=== PATIENT | male | born 1975 | race Caucasian/White ===

== ENCOUNTER 2022-01-23 23:30 | Emergency (ER) | payer OTHER ==
[2022-01-24 00:07] VITALS: PULSE 60; RESP 14; TEMP 97.8
--- NOTE | 2022-01-24 00:25 | XR ---
EXAMINATION TYPE: XR chest 2V DATE OF EXAM: 01/24/2022 COMPARISON: NONE HISTORY: Chest pain TECHNIQUE: 2 views FINDINGS: Heart is normal. Lungs are clear. Consolidation. There are no hilar masses. Costophrenic an gles are clear. IMPRESSION: No active cardiopulmonary disease. Normal heart.
[2022-01-24 00:52] LABS: Basophils % (A) 0 %; Eosinophils # (A) 0.2 k/uL (0-0.7); Eosinophils % (A) 2 %; HCT 43.8 % (39.0-53.0); HGB 14.4 gm/dL (13.0-17.5); Lymphocytes # (A) 2.3 k/uL (1.0-4.8); Lymphocytes % (A) 28 %; MCH 30.8 pg (25.0-35.0); MCV 93.5 fL (80.0-100.0); Mean Platelet Volume 7.3; Monocytes # (A) 0.7 k/uL (0-1.0); Monocytes % (A) 9 %; Neutrophils # (A) 4.9 k/uL (1.3-7.7); Neutrophils % (A) 59 %; Platelet Count 268 k/uL (150-450); RBC 4.68 m/uL (4.30-5.90); RDW 13.2 % (11.5-15.5); WBC 8.3 k/uL (3.8-10.6)
[2022-01-24] MEDS ORDERED: SODIUM CHLORIDE 0.9% 1,000 ML IV STA ×2 (00:52→01:56)
[2022-01-24 00:55] LABS: Albumin 4.5 g/dL (3.5-5.0); Magnesium 1.9 mg/dL (1.6-2.3); Total Bilirubin 0.3 mg/dL (0.2-1.3); Total Protein 6.9 g/dL (6.3-8.2)
[2022-01-24 00:56] LABS: INR 1.1 (<1.2); Partial Thromboplastin Time 22.3 sec (22.0-30.0); Prothrombin Time 11.4 sec (9.0-12.0)
--- NOTE | 2022-01-24 02:01 | ED ---
General Adult HPI - General Chief complaint: Chest Pain Stated complaint: Syncope Time Seen by Provider: 01/24/22 00:27 Source: patient, RN notes reviewed Mode of arrival: wheelchair Limitations: no limitations - History of Present Illness Initial comments: 46-year-old male presents to the emergency department for evaluation status post syncopal episode this evening. 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 States he was briefly unconscious and recalls several people standing over him as he came around. States he has a history of hypertension which is well-controlled. Has not had a previous episode similar in nature. Does endorse some alcohol intake this evening. Denies fever, chills, headache, chest pain, shortness of breath, abdominal pain, nausea, vomiting, diarrhea, dysuria, or lower extremity edema. - Related Data Home Medications Medication Instructions Recorded Confirmed Aspirin 325 mg PO DAILY PRN 05/06/16 05/06/16 Multivit-Mins/Iron/Folic/Lycop 1 tab PO DAILY 05/06/16 05/06/16 [Centrum Men's Tablet] Highlands-3 Fatty Acids [Highlands-3] 1,000 mg PO DAILY 05/06/16 05/06/16 Previous Rx's Medication Instructions Recorded Ibuprofen [Motrin] 600 mg PO Q6HR PRN #40 day 05/06/16 Allergies Allergy/AdvReac Type Severity Reaction Status Date / Time No Known Allergies Allergy Verified 05/06/16 13:56 Review of Systems ROS Statement: Those systems with pertinent positive or pertinent negative responses have been documented in the HPI. ROS Other: All systems not noted in ROS Statement are negative. Past Medical History Past Medical History: Unable to Obtain, Hypertension History of Any Multi-Drug Resistant Organisms: None Reported Additional Past Surgical History / Comment(s): nose Past Psychological History: No Psychological Hx Reported Past Alcohol Use History: Occasional Past Drug Use History: None Reported General Exam Limitations: no limitations (Well-developed, well-nourished male in no acute distress. Initial temperature 97.8, pulse 60, respirations 14, blood pressure 120/70, pulse ox 97% on room air.) General appearance: alert, in no apparent distress Head exam: Present: atraumatic, normocephalic, normal inspection Eye exam: Present: normal appearance, PERRL, EOMI. Absent: scleral icterus, conjunctival injection, periorbital swelling ENT exam: Present: normal exam, normal oropharynx, mucous membranes moist, TM's normal bilaterally Neck exam: Present: normal inspection, full ROM. Absent: tenderness, meningismus, lymphadenopathy Respiratory exam: Present: normal lung sounds bilaterally. Absent: respiratory distress, wheezes, rales, rhonchi, stridor, chest wall tenderness Cardiovascular Exam: Present: regular rate, normal rhythm, normal heart sounds. Absent: systolic murmur, diastolic murmur, rubs, gallop, clicks GI/Abdominal exam: Present: soft, normal bowel sounds. Absent: distended, tenderness, guarding, rebound, rigid Neurological exam: Present: alert, oriented X3, CN II-XII intact, normal gait Expanded Patient oriented to: Present: person, place, time Speech: Present: fluid speech Cranial nerves: EOM's Intact: Normal, Nystagmus: Normal Cerebellar function: Finger to Nose: Normal, Romberg: Normal Motor strength exam: RUE: 5, LUE: 5, RLE: 5, LLE: 5 Eye Response: (4) open spontaneously Motor Response: (6) obeys commands Verbal Response: (5) oriented Mercedes Total: 15 Psychiatric exam: Present: normal affect, normal mood Skin exam: Present: warm, dry, intact, normal color. Absent: rash Course Vital Signs 01/24/22 01/24/22 00:05 02:19 Temperature 97.8 F Pulse Rate 60 Respiratory 14 Rate Blood Pressure 112/70 Blood Pressure 128/83 [Left Arm Supine] Blood Pressure 133/83 [Sitting] Blood Pressure 139/81 [Standing] O2 Sat by Pulse 97 Oximetry Medical Decision Making - Medical Decision Making This is a pleasant 46-year-old male with no significant past medical history who presents to the emergency department for evaluation status post syncopal episode this evening. Upon exam patient is well-appearing and in no acute distress. He is neurologically intact with no focal deficits. Laboratory studies were obtained and show mild dehydration. I did discuss with him his slightly elevated liver einzymes and suggested follow-up with his PCP for a recheck in the near future. Chest x-ray is negative. EKG shows normal sinus rhythm with no ectopy or ST segment changes. Orthostatics are negative. Vital signs are stable. Patient was given a liter of IV fluids and reports feeling improved. He will be discharged home to follow up with his PCP for recheck next week. Return parameters were discussed in detail. Patient verbalizes understanding and agrees with this plan. Attending: Ramon. - Lab Data Result diagrams: 01/24/22 00:10 01/24/22 00:10 Lab Results 01/24/22 01/24/22 01/24/22 Range/Units 00:10 00:10 00:10 WBC 8.3 (3.8-10.6) k/uL RBC 4.68 (4.30-5.90) m/uL Hgb 14.4 (13.0-17.5) gm/dL Hct 43.8 (39.0-53.0) % MCV 93.5 (80.0-100.0) fL MCH 30.8 (25.0-35.0) pg MCHC 33.0 (31.0-37.0) g/dL RDW 13.2 (11.5-15.5) % Plt Count 268 (150-450) k/uL MPV 7.3 Neutrophils % 59 % Lymphocytes % 28 % Monocytes % 9 % Eosinophils % 2 % Basophils % 0 % Neutrophils # 4.9 (1.3-7.7) k/uL Lymphocytes # 2.3 (1.0-4.8) k/uL Monocytes # 0.7 (0-1.0) k/uL Eosinophils # 0.2 (0-0.7) k/uL Basophils # 0.0 (0-0.2) k/uL PT 11.4 (9.0-12.0) sec INR 1.1 (<1.2) APTT 22.3 (22.0-30.0) sec Sodium 132 L (137-145) mmol/L Potassium 4.0 (3.5-5.1) mmol/L Chloride 96 L (98-107) mmol/L Carbon Dioxide 24 (22-30) mmol/L Anion Gap 12 mmol/L BUN 14 (9-20) mg/dL Creatinine 1.17 (0.66-1.25) mg/dL Est GFR (CKD-EPI)AfAm 87 (>60 ml/min/1.73 sqM) Est GFR (CKD-EPI)NonAf 75 (>60 ml/min/1.73 sqM) Glucose 104 H (74-99) mg/dL Calcium 9.0 (8.4-10.2) mg/dL Magnesium 1.9 (1.6-2.3) mg/dL Total Bilirubin 0.3 (0.2-1.3) mg/dL AST 60 H (17-59) U/L ALT 58 H (4-49) U/L Alkaline Phosphatase 72 (38-126) U/L Troponin I (0.000-0.034) ng/mL Total Protein 6.9 (6.3-8.2) g/dL Albumin 4.5 (3.5-5.0) g/dL 01/24/22 Range/Units 00:10 WBC (3.8-10.6) k/uL RBC (4.30-5.90) m/uL Hgb (13.0-17.5) gm/dL Hct (39.0-53.0) % MCV (80.0-100.0) fL MCH (25.0-35.0) pg MCHC (31.0-37.0) g/dL RDW (11.5-15.5) % Plt Count (150-450) k/uL MPV Neutrophils % % Lymphocytes % % Monocytes % % Eosinophils % % Basophils % % Neutrophils # (1.3-7.7) k/uL Lymphocytes # (1.0-4.8) k/uL Monocytes # (0-1.0) k/uL Eosinophils # (0-0.7) k/uL Basophils # (0-0.2) k/uL PT (9.0-12.0) sec INR (<1.2) APTT (22.0-30.0) sec Sodium (137-145) mmol/L Potassium (3.5-5.1) mmol/L Chloride (98-107) mmol/L Carbon Dioxide (22-30) mmol/L Anion Gap mmol/L BUN (9-20) mg/dL Creatinine (0.66-1.25) mg/dL Est GFR (CKD-EPI)AfAm (>60 ml/min/1.73 sqM) Est GFR (CKD-EPI)NonAf (>60 ml/min/1.73 sqM) Glucose (74-99) mg/dL Calcium (8.4-10.2) mg/dL Magnesium (1.6-2.3) mg/dL Total Bilirubin (0.2-1.3) mg/dL AST (17-59) U/L ALT (4-49) U/L Alkaline Phosphatase (38-126) U/L Troponin I <0.012 (0.000-0.034) ng/mL Total Protein (6.3-8.2) g/dL Albumin (3.5-5.0) g/dL - EKG Data EKG shows normal: sinus rhythm Rate: normal EKG Comments: EKG obtained at 2356 shows sinus rhythm with ventricular rate 61, WA interval 147, QRS duration 109, QT/QTC 414/418. Interpretation normal ECG. - Radiology Data Radiology results: report reviewed, image reviewed Two-view chest x-ray was obtained. Report was reviewed in its entirety. Impression per Dr. Kulkarni is no active cardiopulmonary disease. Normal heart. Disposition Clinical Impression: Syncope, Dehydration Disposition: HOME SELF-CARE Condition: Stable Instructions (If sedation given, give patient instructions): Syncope (ED) Additional Instructions: Increase your intake of water. Continue taking your home medications as prescribed. Follow up with your PCP for a recheck this week. Return to the emergency department with any new, worsening, or concerning symptoms. Is patient prescribed a controlled substance at d/c from ED?: No Referrals: Patricia Swan MD [Primary Care Provider] - 1-2 days Time of Disposition: 02:33
[2022-01-24 02:20] VITALS: BP 128/83
== END 2022-01-24 03:30 | disposition home or self-care (01) ==
LOC: EC 23:30
DX: R55 Syncope and collapse (principal); E86.0 Dehydration; I10 Essential (primary) hypertension; Z79.82 Long term (current) use of aspirin
CPT/HCPCS: 36415; 71046; 80053; 83735; 84484; 85025; 85610; 85730; 93005; 99285

== ENCOUNTER 2024-08-06 13:16 | Observation (INO) | payer OTHER ==
[2024-08-06 13:24] LABS: Glucose,Whole Blood 51 mg/dL (70-110)
[2024-08-06 13:27] LABS: Glucose,Whole Blood 137 mg/dL (70-110)
--- NOTE | 2024-08-06 13:28 | ED ---
General Adult HPI - General Stated complaint: Crushed Time Seen by Provider: 08/06/24 13:20 Source: patient, EMS, RN notes reviewed Mode of arrival: EMS Limitations: no limitations - History of Present Illness Initial comments: Patient is a 48-year-old male presenting to the emergency department with concerns for crush injury. Patient was working on a backhoe when something let loose in the bucket knocked him down and landed on him. And landed mostly on his left chest. Patient did have some difficulty in breathing that is near resolved at this time. Patient states that sometimes comes and goes. Patient I also has some abdominal discomfort. Discomfort is rated 6/10. Patient was stuck underneath for up to about a half an hour. No head injury or loss of consciousness. No neck or back pain. No extremity injury. Patient denies alcohol or drug use. - Related Data Home Medications Medication Instructions Recorded Confirmed Aspirin 325 mg PO DAILY PRN 05/06/16 05/06/16 Multivit-Mins/Iron/Folic/Lycop 1 tab PO DAILY 05/06/16 05/06/16 [Centrum Men's Tablet] Thompson-3 Fatty Acids [Thompson-3] 1,000 mg PO DAILY 05/06/16 05/06/16 Previous Rx's Medication Instructions Recorded Ibuprofen [Motrin] 600 mg PO Q6HR PRN #40 day 05/06/16 Allergies Allergy/AdvReac Type Severity Reaction Status Date / Time No Known Allergies Allergy Verified 08/06/24 13:28 Review of Systems ROS Statement: Those systems with pertinent positive or pertinent negative responses have been documented in the HPI. ROS Other: All systems not noted in ROS Statement are negative. Constitutional: Denies: fever Eyes: Denies: eye pain ENT: Denies: ear pain Respiratory: Reports: as per HPI Cardiovascular: Reports: as per HPI Gastrointestinal: Reports: as per HPI Genitourinary: Denies: dysuria Neurological: Denies: headache, weakness, confusion Past Medical History Past Medical History: Unable to Obtain, Hypertension History of Any Multi-Drug Resistant Organisms: None Reported Additional Past Surgical History / Comment(s): nose Past Psychological History: No Psychological Hx Reported Past Alcohol Use History: Occasional Past Drug Use History: None Reported General Exam Limitations: no limitations General appearance: alert, in no apparent distress Head exam: Present: atraumatic, normocephalic Eye exam: Present: normal appearance, PERRL, EOMI Neck exam: Present: normal inspection. Absent: tenderness Respiratory exam: Present: normal lung sounds bilaterally, other (Ecchymosis left mid chest region.). Absent: chest wall tenderness Cardiovascular Exam: Present: regular rate, normal rhythm, normal heart sounds GI/Abdominal exam: Present: soft, tenderness (Moderate diffuse tenderness. Abdominal abrasion/ecchymosis). Absent: guarding, rebound, rigid Extremities exam: Present: normal inspection. Absent: pedal edema, calf tenderness Back exam: Absent: tenderness Neurological exam: Present: alert. Absent: motor sensory deficit Psychiatric exam: Present: normal affect, normal mood Skin exam: Present: normal color Course Vital Signs 08/06/24 13:19 Temperature 97.4 F L Pulse Rate 74 Respiratory 18 Rate Blood Pressure 188/119 O2 Sat by Pulse 98 Oximetry EKG Findings - EKG Results: EKG: interpreted by ERMD (Left axis.), sinus rhythm, normal QRS, normal ST/T Procedures - FAST Exam Fluid in Morison's pouch: No Fluid in Splenorenal Junction: No Fluid around bladder, Transverse view: No Limited Echocardiogram view: subxiphoid Fluid in Pericardial Sac: No Gross Wall Motion Abnormality: No Study normal for this patient: Yes Images saved for further review: Yes Medical Decision Making - Medical Decision Making Trauma was activated prior to patient arrival and case was discussed with Dr. Mora Was pt. sent in by a medical professional or institution (, PA, RN TRANSITIONAL CARE, urgent care, hospital, or senior care...) When possible be specific @ -No Did you speak to anyone other than the patient for history (EMS, parent, family, police, friend...)? What history was obtained from this source @ -EMS provided history of incident and transfer. Did you review nursing and triage notes (agree or disagree)? Why? @ -I reviewed and agree with nursing and triage notes Were old charts reviewed (outside hosp., previous admission, EMS record, old EKG, old radiological studies, urgent care reports/EKG's, senior care records)? Report findings @ -No old charts were reviewed Differential Diagnosis (chest pain, altered mental status, abdominal pain women, abdominal pain men, vaginal bleeding, weakness, fever, dyspnea, syncope, headache, dizziness, GI bleed, back pain, seizure, CVA, palpatations, mental health, musculoskeletal)? @ -Differential Musculoskeletal Muscular strain, contusion, ligament sprain, fracture, arthritis, septic arthritis, bursitis, cellulitis, muscle spasm, nerve compression, DVT, arterial occlusion, herpes zoster, electrolyte abnormality, tumor.... This is not meant to be in all inclusive list EKG interpreted by me (3pts min.). @ -As above X-rays interpreted by me (1pt min.). @ -Chest x-ray shows left-sided probable rib fractures. No definitive pneumothorax. Pelvic x-ray is unremarkable CT interpreted by me (1pt min.). @ -CT scan of head, cervical spine, chest abdomen pelvis without acute traumatic injury U/S interpreted by me (1pt. min.). @ -None done What testing was considered but not performed or refused? (CT, X-rays, U/S, labs)? Why? @ -None What meds were considered but not given or refused? Why? @ -None Did you discuss the management of the patient with other professionals (professionals i.e. , PA, RN TRANSITIONAL CARE, lab, RT, psych nurse, high school social studies tutor, cloak room attendant, teacher, community service officer, case resource manager)? Give summary @ -Dr. Muhammad upon trauma activation. Again discussed with Dr. Muhammad at 1420 and decision to admit. Was smoking cessation discussed for >3mins.? @ -No Was critical care preformed (if so, how long)? @ -33 minutes critical care time Were there social determinants of health that impacted care today? How? (Homelessness, low income, unemployed, alcoholism, drug addiction, transportation, low edu. Level, literacy, decrease access to med. care, retirement, rehab)? @ -No Was there de-escalation of care discussed even if they declined (Discuss DNR or withdrawal of care, Hospice)? DNR status @ -No What co-morbidities impacted this encounter? (DM, HTN, Smoking, COPD, CAD, Cancer, CVA, ARF, Chemo, Hep., AIDS, mental health diagnosis, sleep apnea, morbid obesity)? @ -None Was patient admitted / discharged? Hospital course, mention meds given and route, prescriptions, significant lab abnormalities, going to OR and other pertinent info. @ -Patient presents after piece of heavy equipment falling on entrapping him. Patient does have abrasions and bruising to the chest and abdomen. Questionable left rib fractures. Patient will be admitted. Original blood returned abnormal and this is being redrawn. Patient reevaluated. Patient and family are updated on results and plan. Patient has been hypertensive and states he does take lisinopril 40 and did take this this morning. Patient states normally his blood pressure does run very high. This will be reassessed following pain medication Undiagnosed new problem with uncertain prognosis? @ -No Drug Therapy requiring intensive monitoring for toxicity (Heparin, Nitro, Insulin, Cardizem)? @ -No Were any procedures done? @ -No Diagnosis/symptom? @ -Blunt abdominal trauma Acute, or Chronic, or Acute on Chronic? @ -Acute Uncomplicated (without systemic symptoms) or Complicated (systemic symptoms)? @ -Default Side effects of treatment? @ -No Exacerbation, Progression, or Severe Exacerbation? @ -No Poses a threat to life or bodily function? How? (Chest pain, USA, SD, pneumonia, PE, COPD, DKA, ARF, appy, cholecystitis, CVA, Diverticulitis, Homicidal, Suicidal, threat to staff... 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 [facility] Plasma Lactic Acid Aniceto (0.7-2.0) mmol/L Troponin I (0.000-0.034) ng/mL Blood Type Recheck No Previous Record Bld Type Recheck Status CABO Indicated Spec Expiration Date 08/09/2024 - 231908/06/24 08/06/24 08/06/24 Range/Units 13:31 13:31 13:31 WBC 3.3 L (3.8-10.6) k/uL RBC 2.17 L (4.30-5.90) m/uL Hgb 6.8 L* (13.0-17.5) gm/dL Hct 20.8 L (39.0-53.0) % MCV 95.6 (80.0-100.0) fL MCH 31.1 (25.0-35.0) pg MCHC 32.5 (31.0-37.0) g/dL RDW 13.7 (11.5-15.5) % Plt Count 126 L (150-450) k/uL MPV 8.1 PT 24.1 H (10.0-12.5) sec INR 2.4 H (<1.2) APTT 51.9 H (22.0-30.0) sec POC Glucose (mg/dL) (70-110) mg/dL POC Glu 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 Boiler Operator ID Plasma Lactic Acid Aniceto 1.3 (0.7-2.0) mmol/L Troponin I (0.000-0.034) ng/mL Blood Type Recheck Bld Type Recheck Status Spec Expiration Date 08/06/24 08/06/24 Range/Units 13:31 13:47 WBC (3.8-10.6) k/uL RBC (4.30-5.90) m/uL Hgb (13.0-17.5) gm/dL Hct (39.0-53.0) % MCV (80.0-100.0) fL MCH (25.0-35.0) pg MCHC (31.0-37.0) g/dL RDW (11.5-15.5) % Plt Count (150-450) k/uL MPV PT (10.0-12.5) sec INR (<1.2) APTT (22.0-30.0) sec POC Glucose (mg/dL) 145 H (70-110) mg/dL POC Glu 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
--- NOTE | 2024-08-06 13:36 | XR ---
EXAMINATION TYPE: XR pelvis AP view DATE OF EXAM: 08/06/2024 1:29 PM COMPARISON: None CLINICAL INDICATION: Male, 48 years old with history of Trauma; pain [facility] TECHNIQUE: XR pelvis AP view, examined in a single projection. FINDINGS: There is no evidence of fracture or dislocation. There is no soft tissue abnormality. No a bnormal calcifications are present. The spine appears intact. The hips appear intact. Osteophyte form ation of the superior acetabulum bilaterally with mild joint space narrowing. Cam deformities of femo ral heads. IMPRESSION: 1. No acute osseous pathology. 2. Mild degeneration changes of the hip. 3. Cam deformities of femoral heads. [facility], , 08/06/2024 1:33 PM
--- NOTE | 2024-08-06 13:40 | XR ---
EXAMINATION TYPE: XR chest 1V portable DATE OF EXAM: 08/06/2024 1:29 PM COMPARISON: Chest radiographs from 01/24/2022 CLINICAL INDICATION: Male, 48 years old with history of trauma; pain TECHNIQUE: XR chest 1V portable Frontal view of the chest. FINDINGS: Lungs/Pleura: There is no evidence of pleural effusion, focal consolidation, or pneumothorax. Pulmonary vascularity: Unremarkable. Heart/mediastinum: Cardiomediastinal silhouette is unremarkable. Musculoskeletal: No acute osseous pathology. Other findings: None IMPRESSION: No acute cardiopulmonary disease/process. [facility], , 08/06/2024 1:38 PM
[2024-08-06 13:50] LABS: Glucose,Whole Blood 145 mg/dL (70-110)
--- NOTE | 2024-08-06 14:00 | CT ---
EXAMINATION TYPE: CT brain cspine wo con CT DLP: 1451.4 mGycm, Automated exposure control for dose reduction was used. DATE OF EXAM: 08/06/2024 1:49 PM COMPARISON: None.. CLINICAL INDICATION:Male, 48 years old with history of trauma; Priority 2 trauma. Crushed by heavy eq uipment., pain TECHNIQUE: Brain: Multiple axial CT images of the brain were obtained without IV contrast. Cspine: Axial CT images from the skull base to the inferior aspect of T2 we obtained without intraven ous contrast. Coronal and sagittal reformatted images were also reviewed. FINDINGS: Brain: Extra-axial spaces: No abnormal extra-axial fluid collections. Ventricular system: Within normal limits Cerebral parenchyma: No acute intraparenchymal hemorrhage or mass effect. The dsouza-white junction is well differentiated. Cerebellum: Unremarkable. Mass effect: No evidence of midline shift. Intracranial vasculature: unremarkable Soft tissues: Normal. Calvarium/osseous structures: No depressed skull fracture. Paranasal sinuses and mastoid air cells: The mastoid air cells are clear. Left maxillary sinus 6 mm m ucus retention cyst. Remaining paranasal sinuses are clear. Visualized orbits: Orbital contents are intact. Cervical spine: Fracture: None. Osseous structures: Multilevel degenerative disc disease changes with endplate spurring and disc oste ophyte complex's. Multilevel facet arthropathy. Fusion of the left C4-C5 facet joint. Vertebral alignment: Within normal limits. Spinal canal/Neural Foramina: Disc osteophyte complexes at C3-C4 and C6-C7 with at least mild spinal canal stenosis. Facet joint uncovertebral joint arthropathy scattered throughout the cervical spine w ith varying degrees of neural foraminal stenosis. Neck soft tissues: Prevertebral soft tissues are within normal limits. Other: The airway is patent. The lung apices are clear. IMPRESSION: 1. No acute intracranial process. 2. No evidence of cervical spine fracture. 3. Mild multilevel degenerative disc disease. [facility], , 08/06/2024 1:58 PM
--- NOTE | 2024-08-06 14:09 | CT ---
EXAMINATION TYPE: CT ChestAbdPelvis w con CT DLP: 1979.3 mGycm, Automated exposure control for dose reduction was used. DATE OF EXAM: 08/06/2024 1:57 PM COMPARISON: Chest and pelvic radiographs of the same date. CLINICAL INDICATION:Male, 48 years old with history of trauma; [facility], Priority 2 trauma. 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 Pain. Technique: Multiple axial images of the chest, abdomen, and pelvis were obtained following the intrav enous administration of 100 mL Isovue-300. Two-dimensional coronal and sagittal reconstructions were obtained. Findings: CHEST: LUNGS/ PLEURA: No pleural effusion, pneumothorax, focal consolidation. Mild bilateral lower lobe depe ndent subsegmental atelectasis. Lingular 4.6 mm pulmonary nodule (series 104, image 39). AIRWAY: Patent and unremarkable.. HEART: Size within normal limits.No pericardial effusion. No significant coronary artery calcificatio ns. MEDIASTINUM: No evidence of adenopathy. No mediastinal hematoma. VASCULATURE: No aortic aneurysm. MUSCULOSKELETAL: No acute osseous abnormalities. Remote healed right midclavicular fracture. SOFT TISSUES/LYMPH NODES: Unremarkable. LOWER NECK: No significant findings. ABDOMEN: ABDOMEN LIVER: Surface nodularity to the liver without focal lesion. GALLBLADDER AND BILE DUCTS: Unremarkable. PANCREAS: Unremarkable. SPLEEN: Unremarkable. ADRENAL GLANDS: Unremarkable. KIDNEYS AND URETERS: No evidence of hydronephrosis or renal calculus. The kidneys enhance symmetrical ly. Contrast is demonstrated within both collecting systems and throughout both ureters on the delaye d phase without extravasation. PELVIS BLADDER: Unremarkable. Contrast is demonstrated within the urinary bladder without extravasation on t he delayed phase. REPRODUCTIVE: Coarse calcifications of the prostate gland are identified. Mildly enlarged prostate gl and measuring 5.0 cm in transverse dimension. ABDOMEN & PELVIS STOMACH AND BOWEL: Stomach and duodenum are unremarkable. No focal bowel wall thickening or surroundi ng inflammatory changes. The appendix is within normal limits. No evidence of bowel obstruction. PERITONEUM: No evidence of pneumoperitoneum or free fluid. VASCULATURE: No evidence of aortic aneurysm. MUSCULOSKELETAL: No acute osseous abnormalities. Mild retrolisthesis at L1-L2 degenerative disc disea se at L1-L2. LYMPH NODES: No evidence for lymphadenopathy. SOFT TISSUE/ABDOMINAL WALL: Unremarkable IMPRESSION: 1. No CT evidence for acute traumatic process within the chest, abdomen or pelvis. 2. Surface nodularity of the liver concerning for cirrhosis. Correlate with liver function tests. 3. Lingular 4.6 mm pulmonary nodule. According to Fleischner's criteria in a low-risk patient no fol low up is recommended. In a high-risk patient consider optional CT chest in 12 months. [facility], , 08/06/2024 2:06 PM
[2024-08-06] MEDS: HYDROmorphone 1 MG/ML 1 ML SYRINGE IVP STA (14:17)
[2024-08-06] MEDS ORDERED: traMADol 50 MG TAB PO PRN (14:31)
[2024-08-06] MEDS ORDERED: HYDROmorphone 0.5 MG/0.5 ML SYRINGE IVP PRN (14:31)
[2024-08-06] MEDS ORDERED: NALOXONE 0.4 MG/ML 1 ML VIAL IV PRN (14:31)
[2024-08-06 14:32] LABS: Basophils % (A) 0 %; Eosinophils # (A) 0.1 k/uL (0-0.7); Eosinophils % (A) 1 %; HCT 49.3 % (39.0-53.0); Lymphocytes # (A) 1.4 k/uL (1.0-4.8); Lymphocytes % (A) 10 %; MCH 30.1 pg (25.0-35.0); MCHC 32.9 g/dL (31.0-37.0); MCV 91.5 fL (80.0-100.0); Mean Platelet Volume 7.6; Monocytes # (A) 0.8 k/uL (0-1.0); Monocytes % (A) 5 %; Neutrophils # (A) 11.9 k/uL (1.3-7.7); Neutrophils % (A) 83 %; RBC 5.39 m/uL (4.30-5.90); RDW 13.6 % (11.5-15.5); WBC 14.4 k/uL (3.8-10.6)
[2024-08-06 14:36] LABS: Amphetamine Screen,Urine Not Detected (NotDetected); Barbiturate Screen,Urine Not Detected (NotDetected); Benzodiazepines Screen,Urine Not Detected (NotDetected); Cocaine Screen,Urine Not Detected (NotDetected); Methadone Screen, Urine Not Detected (NotDetected); Opiate Screen,Urine Not Detected (NotDetected); Oxycodone Screen, Urine Not Detected (NotDetected); Phencyclidine Screen,Urine Not Detected (NotDetected); Tricyclic Antidepressant,Urine Not Detected (NotDetected); Urn Cannabinoid Scrn Detected (NotDetected)
[2024-08-06 14:41] LABS: ALT 66 U/L (4-49); AST 54 U/L (17-59); African American GFR (CKD) >90 (>60 ml/min/1.73 sqM); Albumin 4.3 g/dL (3.5-5.0); Alcohol <10 mg/dL; Alkaline Phosphatase 89 U/L (38-126); Anion Gap 8 mmol/L; Blood Urea Nitrogen 11 mg/dL (9-20); Calcium 8.9 mg/dL (8.4-10.2); Carbon Dioxide 26 mmol/L (22-30); Chloride 101 mmol/L (98-107); Glucose 125 mg/dL (74-99); Non-African American GFR(CKD) >90 (>60 ml/min/1.73 sqM); Potassium 4.8 mmol/L (3.5-5.1); Sodium 135 mmol/L (137-145); Total Bilirubin 0.7 mg/dL (0.2-1.3); Total Protein 7.2 g/dL (6.3-8.2)
[2024-08-06] MEDS: SODIUM CHLORIDE 0.9% 1,000 ML IV SCH (14:50)
[2024-08-06 14:54] LABS: INR 1.1 (<1.2); Prothrombin Time 12.3 sec (10.0-12.5)
[2024-08-06 14:55] LABS: HGB 16.2 gm/dL (13.0-17.5); Platelet Count 297 k/uL (150-450)
[2024-08-06] MEDS: HYDROcodone/APAP 5-325MG 1 EACH TAB PO PRN (14:59)
--- NOTE | 2024-08-06 15:27 | P.GSHP ---
History of Present Illness H&P Date: 08/06/24 CHIEF COMPLAINT: Crushed by backhoe HISTORY OF PRESENT ILLNESS: This is a 48-year-old male who presented to the emergency department with concerns of a crush injury from a backhoe bucket. Patient was working on the backhoe when the bucket let loose and landed on him. Patient reports that the bucket crushed across the chest and abdomen. He has bruising across the chest and abdomen. He reports mostly a discomfort in the abdomen. He denies shortness of breath. He denies any loss of consciousness. He is able to move all 4 extremities. He denies being on any blood thinners. FAST exam was negative. Patient reports that the bucket was laying on him for about 30 minutes. Blood pressure is elevated. He is on [address] scan chest abdomen pelvis reports no acute traumatic process. Chest x-ray reviewed with ER physician which appears to show a left eighth rib fracture. No evidence of hematuria. Patient reports he is hungry. Denies any nausea or vomiting. PAST MEDICAL HISTORY: See below PAST SURGICAL HISTORY: See below MEDICATIONS: See below ALLERGIES: See below SOCIAL HISTORY: No illicit drug use. REVIEW OF SYSTEMS: CONSTITUTIONAL: Denies fever or chills. HEENT: Denies blurred vision, vision changes, or eye pain. Denies hemoptysis CARDIOVASCULAR: Denies chest pain or pressure. RESPIRATORY: No shortness of breath. GASTROINTESTINAL: See HPI for pertinent findings HEMATOLOGIC: Denies bleeding disorders. GENITOURINARY: Denies any blood in urine or increased urinary frequency. SKIN: Denies pruitis. Denies rash. PHYSICAL EXAM: VITAL SIGNS: Reviewed GENERAL: Well-developed in no acute distress. HEENT: No sclera icterus. Extraocular movements grossly intact. Moist buccal mucosa. Head is atraumatic, normocephalic. No nasal drainage. Neck supple. no tenderness CHEST: Ecchymosis and abrasions noted on the left chest wall. Mild tenderness with palpation of the left chest wall. No use of assessory muscles. Chest wall movement equal bilaterally. ABDOMEN: Soft. Nondistended. Diffuse tenderness. There is abdominal abrasions and ecchymosis diffusely. No guarding or rebound noted NEUROLOGIC: Alert and oriented. Cranial nerves II through XII grossly intact. Extremities: Able to move all 4 extremities. Patient does have small area of ecchymosis and mild swelling noted right hip area LABORATORY DATA: WBC is 14.4 Hgb 16.2 platelets 297 INR 1.1 Sodium is 135 potassium is 4.8 creatinine 0.90 Total bilirubin 0.7 AST 54 ALT mildly elevated 66 alk phos 89 Lactic acid 1.8 Troponins negative Urine drug screen marijuana detected IMAGING: CT scan abdomen pelvis no CT scan evidence for acute traumatic process within the chest abdomen or pelvis. Surface nodularity of the liver concerning for cirrhosis. Lingular 4.[address] scan head and cervical spine no acute intracranial process. No evidence of cervical spine fracture. Mild multiple degenerative disc disease Pelvic x-ray no acute osseous pathology. Mild degenerative changes of the hip. Cam deformities of femoral heads Chest x-ray reports no acute cardiopulmonary disease/process. But upon further reviewing with ER physician there looks to be a rib fracture located and the left eighth rib ASSESSMENT: 1. Crushing trauma to abdomen and chest from backhoe bucket 2. Abrasions and ecchymosis noted left chest wall and abdomen 3. Possible rib fracture on the left eighth rib 4. Hypertension 5. Mildly elevated ALT PLAN: -Continue to observe -Continue pain management -Continue IV fluids -Incentive spirometer ordered -Okay for regular diet -Repeat labs in a.m. Physician Senior Visual Designer note has been reviewed by physician. Signing provider agrees with the documented findings, assessment, and plan of care. Past Medical History Past Medical History: Unable to Obtain, Hypertension History of Any Multi-Drug Resistant Organisms: None Reported Additional Past Surgical History / Comment(s): nose Past Psychological History: No Psychological Hx Reported Past Alcohol Use History: Occasional Past Drug Use History: None Reported Medications and Allergies Home Medications Medication Instructions Recorded Confirmed Type Aspirin 325 mg PO DAILY PRN 05/06/16 05/06/16 History Ibuprofen [Motrin] 600 mg PO Q6HR PRN #40 day 05/06/16 Rx Multivit-Mins/Iron/Folic/Lycop 1 tab PO DAILY 05/06/16 05/06/16 History [Centrum Men's Tablet] [place]-3 Fatty Acids [[place]-3] 1,000 mg PO DAILY 05/06/16 05/06/16 History Allergies Allergy/AdvReac Type Severity Reaction Status Date / Time No Known Allergies Allergy Verified 08/06/24 13:28 Surgical - Exam Vital Signs Temp Pulse Resp BP Pulse Ox 97.4 F L 74 18 188/119 98 08/06/24 13:19 08/06/24 13:19 08/06/24 13:19 08/06/24 13:19 08/06/24 13:19 Results - Labs 08/06/24 14:04 08/06/24 14:04 Abnormal Lab Results - Last 24 Hours (Table) 08/06/24 08/06/24 08/06/24 Range/Units 13:23 13:25 13:31 WBC (3.8-10.6) k/uL Neutrophils # (1.3-7.7) k/uL PT 24.1 H (10.0-12.5) sec INR 2.4 H (<1.2) APTT 51.9 H (22.0-30.0) sec Sodium (137-145) mmol/L Glucose (74-99) mg/dL POC Glucose (mg/dL) 51 L 137 H (70-110) mg/dL ALT (4-49) U/L U Marijuana (THC) Screen (NotDetected) 08/06/24 08/06/24 08/06/24 Range/Units 13:47 14:04 14:04 WBC 14.4 H (3.8-10.6) k/uL Neutrophils # 11.9 H (1.3-7.7) k/uL PT (10.0-12.5) sec INR (<1.2) APTT (22.0-30.0) sec Sodium 135 L (137-145) mmol/L Glucose 125 H (74-99) mg/dL POC Glucose (mg/dL) 145 H (70-110) mg/dL ALT 66 H (4-49) U/L U Marijuana (THC) Screen (NotDetected) 08/06/24 08/06/24 Range/Units 14:12 14:22 WBC (3.8-10.6) k/uL Neutrophils # (1.3-7.7) k/uL PT (10.0-12.5) sec INR (<1.2) APTT 21.0 L (22.0-30.0) sec Sodium (137-145) mmol/L Glucose (74-99) mg/dL POC Glucose (mg/dL) (70-110) mg/dL ALT (4-49) U/L U Marijuana (THC) Screen Detected H (NotDetected) Diabetes panel 08/06/24 Range/Units 14:04 Sodium 135 L (137-145) mmol/L Potassium 4.8 (3.5-5.1) mmol/L Chloride 101 (98-107) mmol/L Carbon Dioxide 26 (22-30) mmol/L BUN 11 (9-20) mg/dL Creatinine 0.90 (0.66-1.25) mg/dL Glucose 125 H (74-99) mg/dL Calcium 8.9 (8.4-10.2) mg/dL AST 54 (17-59) U/L ALT 66 H (4-49) U/L Alkaline Phosphatase 89 (38-126) U/L Total Protein 7.2 (6.3-8.2) g/dL Albumin 4.3 (3.5-5.0) g/dL Calcium panel 08/06/24 Range/Units 14:04 Calcium 8.9 (8.4-10.2) mg/dL Albumin 4.3 (3.5-5.0) g/dL Pituitary panel 08/06/24 Range/Units 14:04 Sodium 135 L (137-145) mmol/L Potassium 4.8 (3.5-5.1) mmol/L Chloride 101 (98-107) mmol/L Carbon Dioxide 26 (22-30) mmol/L BUN 11 (9-20) mg/dL Creatinine 0.90 (0.66-1.25) mg/dL Glucose 125 H (74-99) mg/dL Calcium 8.9 (8.4-10.2) mg/dL Adrenal panel 08/06/24 Range/Units 14:04 Sodium 135 L (137-145) mmol/L Potassium 4.8 (3.5-5.1) mmol/L Chloride 101 (98-107) mmol/L Carbon Dioxide 26 (22-30) mmol/L BUN 11 (9-20) mg/dL Creatinine 0.90 (0.66-1.25) mg/dL Glucose 125 H (74-99) mg/dL Calcium 8.9 (8.4-10.2) mg/dL Total Bilirubin 0.7 (0.2-1.3) mg/dL AST 54 (17-59) U/L ALT 66 H (4-49) U/L Alkaline Phosphatase 89 (38-126) U/L Total Protein 7.2 (6.3-8.2) g/dL Albumin 4.3 (3.5-5.0) g/dL
[2024-08-06] MEDS: ONDANSETRON 4 MG/2 ML VIAL IVP PRN (15:34)
[2024-08-06] MEDS: hydrALAZINE HCL 20 MG/ML 1 ML VIAL IVP STA (15:34)
[2024-08-06] MEDS: HYDROmorphone 1 MG/ML 1 ML SYRINGE IVP PRN (18:17)
[2024-08-06] MEDS: FAMOTIDINE 20 MG TAB PO SCH (20:20)
[2024-08-06] MEDS: ENOXAPARIN 40 MG/0.4 ML SYRINGE SQ SCH (20:23)
[2024-08-06] MEDS: buPROPion SR 100 MG TABLET.ER PO SCH (20:53)
[2024-08-07 07:57] VITALS: RESP 16
[2024-08-07 08:24] LABS: Basophils # (A) 0.03 X 10*3/uL (0.00-0.10); Basophils % (A) 0.2 %; Eosinophils # (A) 0.04 X 10*3/uL (0.04-0.35); Eosinophils % (A) 0.3 %; HCT 44.3 % (39.6-50.0); HGB 14.6 g/dL (13.0-17.0); Lymphocytes # (A) 2.04 X 10*3/uL (0.90-5.00); Lymphocytes % (A) 15.2 %; Mean Platelet Volume 9.8 FL (9.5-12.2); Monocytes # (A) 1.49 X 10*3/uL (0.20-1.00); Monocytes % (A) 11.1 %; NRBC Per 100 WBC 0 X 10*3/uL (0.00-0.01); Neutrophils # (A) 9.73 X 10*3/uL (1.80-7.70); Neutrophils % (A) 72.7 %; Platelet Count 277 X 10*3/uL (140-440); RBC 4.87 X 10*6/uL (4.40-5.60); RDW 13.6 % (11.5-14.5)
[2024-08-07 08:31] LABS: ALT 63 U/L (10-49); AST 57 U/L (14-35); Albumin 4.1 g/dL (3.8-4.9); Albumin/Globulin Ratio 1.78 Ratio (1.60-3.17); Alkaline Phosphatase 91 U/L (41-126); Amylase 54 U/L (23-121); BUN/Creat Ratio 9.78 Ratio (12.00-20.00); Blood Urea Nitrogen 8.8 mg/dL (9.0-27.0); Calcium 8.6 mg/dL (8.7-10.3); Carbon Dioxide 27.4 mmol/L (21.6-31.8); Chloride 101 mmol/L (96-109); Globulin 2.3 g/dL (1.6-3.3); Glucose 112 mg/dL (70-110); Lipase 41 U/L (14-60); Sodium 138 mmol/L (135-145); Total Bilirubin 0.8 mg/dL (0.3-1.2); Total Protein 6.4 g/dL (6.2-8.2)
[2024-08-07] MEDS: lisinopriL 20 MG TAB PO SCH (08:41)
[2024-08-07 13:02] LABS: INR 1.08 sec (0.93-1.11)
--- NOTE | 2024-08-07 14:39 | P.DS ---
Providers Date of admission: 08/06/24 14:32 Expected date of discharge: 08/07/24 Attending physician: Ki Vidal Primary care physician: Patricia Swan Hospital Course: Discharge diagnosis 1. Crushing trauma to abdomen and chest from backhoe bucket 2. Abrasions and ecchymosis noted left chest wall and abdomen 3. Possible rib fracture on the left eighth rib 4. Hypertension 5. Mildly elevated LFTs Hospital course This is a 48-year-old male who presented to the emergency department with concerns of a crush injury from a backhoe bucket. Patient was working on the [employer] when the bucket let loose and landed on him. Patient reports that the bucket crushed across the chest and abdomen. He has bruising across the chest and abdomen. FAST exam completed and was negative. CT scan chest abdomen pelvis reports no acute traumatic process. Chest x-ray reviewed with ER physician which appears to show a left eighth rib fracture. Patient is on room air. He is up and ambulating. His pain is controlled. He is tolerating diet. He is afebrile. He is stable for discharge. Please refer to chart for any further details. Physician Singing Telegram Performer note has been reviewed by physician. Signing provider agrees with the documented findings, assessment, and plan of care. I have personally seen and examined the patient, reviewed the CUSTOMER ENGAGEMENT ANALYST /PAs history, exam and MDM and agree with the assessment and plan as written. Based on total visit time, I have performed more than 50% of the visit. As above: Patient doing much better today. Mild left chest pain with deep inspiration. May discharge from our point of view. He already has an outpatient appointment with his primary care in the next 1 to 2 weeks. Patient to return to the ER with any increasing shortness of breath or discomforts. Patient is agreeable. Patient Condition at Discharge: Stable Plan - Discharge Summary New Discharge Prescriptions: New HYDROcodone/APAP 5-325MG [[place] 5-325] 1 tab PO Q6HR PRN 3 Days #12 tab PRN Reason: Pain Continue lisinopriL 40 mg PO DAILY buPROPion SR [Wellbutrin SR] 100 mg PO BID Discharge Medication List buPROPion SR [Wellbutrin SR] 100 mg PO BID 08/06/24 [History] lisinopriL 40 mg PO DAILY 08/06/24 [History] HYDROcodone/APAP 5-325MG [[place] 5-325] 1 tab PO Q6HR PRN 3 Days #12 tab 08/07/24 [Rx] Follow up Appointment(s)/Referral(s): Patricia Swan MD [Primary Care Provider] - 1-2 days Patient Instructions/Handouts: Blunt Chest Trauma (DC) Discharge Disposition: HOME SELF-CARE
[2024-08-07 16:31] VITALS: BP 158/89; PULSE 69; TEMP 98.3
== END 2024-08-07 14:56 | disposition home or self-care (01) ==
LOC: EC 13:16 → 6NMEDSUR 14:32 → 4SSUR 14:56 → 3SCARD 17:18 → 6NMEDSUR 19:57
PROVIDERS: ADMIT Surgery; ATTEND Surgery
DX: S38.1XXA Crushing injury of abdomen, lower back, and pelvis, initial encounter (principal); S28.0XXA Crushed chest, initial encounter; W31.89XA Contact with other specified machinery, initial encounter; I10 Essential (primary) hypertension; R74.01 Elevation of levels of liver transaminase levels; Z79.82 Long term (current) use of aspirin; Z79.899 Other long term (current) drug therapy
CPT/HCPCS: 96372; 96376; 96374; 96375; 99291; 36415; 93005; 86900; 86901; 80053 ×2; 82150; 83605; 83690; 84484; 85025 ×2; 85610 ×2; 85730; 86850; 80306; 72170; 71045; 72125; 70450; 71260; 74177; G0378 ×4; G0480; J0360; S0106 ×2; J2405; J1650; J1171; Q9967; 80320